=== PATIENT | female | born 1950 | race Caucasian/White ===

== ENCOUNTER 2018-08-07 05:17 | Inpatient (IN) | payer OTHER ==
[2018-07-31 11:07] LABS: URINE BILIRUBIN NEGATIVE (Negative); URINE BLOOD NEGATIVE (Negative); URINE CLARITY SL CLOUDY; URINE COLOR YELLOW; URINE GLUCOSE-RANDOM* NEGATIVE (Negative); URINE KETONES NEGATIVE (Negative); URINE LEUKOCYTES-REFLEX NEGATIVE (Negative); URINE NITRITE-REFLEX NEGATIVE (Negative); URINE PROTEIN (DIPSTICK) NEGATIVE (Negative); URINE SPECIFIC GRAVITY <= 1.005 (1.005-1.035); URINE UROBILINOGEN 0.2 E.U./dl (0.2-1.0)
[2018-07-31 11:09] LABS: CALCIUM 10.1 mg/dL (8.5-10.1); CREATININE 1.5 mg/dL (0.6-1.0); POTASSIUM 4.1 mmol/L (3.5-5.1)
[2018-07-31 11:11] LABS: PROTIME 9.8 Seconds (9.3-11.4)
[2018-07-31 11:49] LABS: HEMATOCRIT 39.7 % (37.0-47.0); HEMOGLOBIN 13.5 gm/dL (12.0-15.0); MCH 29.1 pg (26.0-34.0); MCHC 33.9 g/dL (28.0-37.0); MCV 85.7 fL (80.0-100.0); RBC 4.63 mil/uL (4.20-5.00); RDW 13.3 % (10.5-14.5); WBC 8.8 thou/uL (4.0-11.0)
[2018-08-01 04:08] LABS: GLYCOHEMOGLOBIN (HGB A1C) 5.4 % (4.8-5.6)
[~2018-08-07] VITALS: Ht 165.1 cm; Wt 98.0 kg
[2018-08-07] VITALS (7 sets, daily range): BP systolic 98–135; BP diastolic 45–72
--- NOTE | ~2018-08-07 | EKG ---
[address] [address] ELECTROCARDIOGRAM REPORT Name: RIVERA RIVER Room #: PRE [facility]#: [id number] Admission: Attend Phys: Quentin Fernando MD Discharge: Date of : 50 Report #: [id number] THIS REPORT FOR: //name// [facility] Test Date: 2018-07-31 Test Time: 10:36:52 Pat Name: RIVERA RIVER Department: Room: Gender: F Posting Specialist: Dilip PEREYRA : 1950 Requested By: Quentin Fernando Order Number: [id number] MD: Gus Simmons Measurements Intervals [place] Rate: 52 P: 31 [place]: 137 QRS: -1 QRSD: 105 T: 44 QT: 435 QTc: 405 Interpretive Statements Sinus rhythm No previous ECG available for comparison Electronically Signed On 08-04-2018 14:36:56 CDT by Gus Simmons [email or web address] <ELECTRONICALLY SIGNED> By: Gus Simmons MD 08/04/18 1436 1036 1036 Gus Simmons MD /SARAH
--- NOTE | ~2018-08-07 | O ---
[facility] [place] [address] OPERATIVE REPORT Name: RIVERA RIVER Room #: 454-P [facility] M.R.#: [id number] Admission: 08/07/18 Attend Phys: Quentin Fernando MD Discharge: Date of : 50 Report #: [id number] THIS REPORT FOR: //name// CC: BIBIANA DAHL Physician staff Quentin Fernando DATE OF SERVICE: 08/07/2018 PREOPERATIVE DIAGNOSIS: Left knee medial compartment osteoarthritis. POSTOPERATIVE DIAGNOSIS: Left knee medial compartment osteoarthritis. PROCEDURE: Left medial compartment knee arthroplasty with Navio assist. SURGEON: Quentin Fernando MD. BEEF GRINDER: Alicia Swan PA-C. INDICATIONS FOR BEEF GRINDER: Throughout the case, extensive retraction and manipulation of the knee was required. This was afforded to me by my funeral assistant. ANESTHESIA: LMA with an adductor canal block. IMPLANTS: [employer] size 5 Stride femoral medial knee component, a size 5 tibia and a size 9 polyethylene. TOURNIQUET TIME: 72 minutes. ESTIMATED BLOOD LOSS: 25 mL. COMPLICATIONS: None. SPECIMENS: None. CONDITION UPON LEAVING THE OPERATING ROOM: Stable. INDICATION FOR PROCEDURE: The patient is a 67-year-old female with severe left knee medial compartment osteoarthritis. She had failed conservative measures for this and after discussion with her, she elected for left medial compartment knee arthroplasty. DESCRIPTION OF PROCEDURE: Risks, benefits, alternatives, complications were discussed in detail with the patient including but not limited to risk of anesthesia, risk of damage to nerves, arteries, blood vessels, risk for infection, bleeding, risk for continued knee pain, need for reoperation. [facility] [address] [place] [address] OPERATIVE REPORT Name: RIVERA RIVER Enrique Room #: 454-P [facility] ..#: [id number] Admission: 08/07/18 Attend Phys: Quentin Fernando MD Discharge: Date of : 50 Report #: [id number] Informed consent was obtained from the patient. Left knee was appropriately marked in the preoperative holding area. IV vancomycin was given for preoperative antibiotics. Adductor canal block was placed by anesthesia. She was brought to the operating room and placed in the supine position on the operating room table. LMA anesthesia was induced without complication. Tourniquet was placed on the left thigh. Left lower extremity was prepped and draped in normal sterile fashion. Timeout was performed properly identifying the patient and procedure as well as the instrumentation and implants. All in the operating room were in agreement. Left lower extremity was exsanguinated, tourniquet was inflated. Tourniquet time was 72 minutes. Standard approach to the medial compartment was made with 10 blade through the skin. Dissection was taken down sharply to the fascia and deep flaps were developed medially and laterally. Fresh 10 blade was used to make a medial parapatellar arthrotomy and the knee was inspected. There was severe medial compartment osteoarthritis. Lateral compartment was well maintained. 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 It was decided to proceed with medial compartment arthroplasty. Reference pins were then placed in the femur and the tibia and the knee was then digitally mapped by Navio surgical navigation funeral assistant. Intraoperative plan was then made and there was a size 5 femur and a size 5 tibia. After acceptance of the plan, the femoral and tibial resections were made with the Navio bur. Trial components were then placed and a size 9 polyethylene spacer was placed. Knee was taken through range of motion, found to be stable, found to have 1-mm laxity immediately through range of motion with the intraoperative plan. Trial components were removed. Bony ends were thoroughly irrigated with normal saline. A final size 5 tibia, size 5 Stride femur and a size 9 polyethylene were placed. While the cement cured, a periarticular injection consisting of morphine, ropivacaine, epinephrine and Toradol was placed around the knee joint. After the cement cured, a final size 9 polyethylene was placed. The fascia was closed with 0 Vicryl. Tourniquet was deflated. Hemostasis was obtained with Bovie cautery. A gram of vancomycin was placed deep in the joint prior to closure. Skin was closed with 2-0 Vicryl, 3-0 Monocryl. Dermabond and a ARMOND dressing was applied. The patient tolerated this procedure well and went to recovery room under care of anesthesia postoperatively. <ELECTRONICALLY SIGNED> By: Quentin Fernando MD 08/08/18 0748 1519 1622 Quentin Fernando MD /nt
[~2018-08-07 05:17] MED LIST: ASPIR 8181 MG PO; CENTRUM SILVER1 EAC4 PO; FLONASE 0.05%50 MCG NASAL; LIPITOR10 MG PO; NORVASC10 MG PO; PRILOSEC 20 MG20 MG PO; TRIAMTERENE-HC1 EAC3 PO
[2018-08-08 05:39] LABS: HEMATOCRIT 32.1 % (37.0-47.0); HEMOGLOBIN 10.7 gm/dL (12.0-15.0); MCHC 33.4 g/dL (28.0-37.0); MCV 86.8 fL (80.0-100.0); RBC 3.7 mil/uL (4.20-5.00); RDW 13.2 % (10.5-14.5); WBC 12.6 thou/uL (4.0-11.0)
[2018-08-08 08:00] VITALS: BP 117/61
[2018-08-08] MEDS ORDERED: REGLAN 5 MG TAB5 MG PO (09:36)
[2018-08-08] MEDS ORDERED: NEURONTIN 300300 M1 PO (09:36)
[2018-08-08] MEDS ORDERED: TRI-BUFFERED A325 M1 PO (09:36)
[2018-08-08 10:38] VITALS: BP 117/61
== END 2018-08-08 13:27 | disposition home or self-care (01) | DRG 470 ==
LOC: 4W 05:17 → TBA 05:17 → PRE 06:21 → 4W 15:59 → PRE 16:20 → ENTRNSPT 08-08 13:18 → EDTRNSPTSTS 08-08 13:23 → 4W 08-08 13:27
PROVIDERS: Orthopaedic Surgery
PROC: 0SRD0L9 Replacement of Left Knee Joint with Medial Unicondylar Synthetic Substitute, Cemented, Open Approach (ICD-10-PCS; principal; 2018-08-07)
DX: M17.12 Unilateral primary osteoarthritis, left knee (principal); I10 Essential (primary) hypertension; E78.00 Pure hypercholesterolemia, unspecified; H40.9 Unspecified glaucoma; Z79.899 Other long term (current) drug therapy; Z88.6 Allergy status to analgesic agent; Z88.2 Allergy status to sulfonamides; Z88.8 Allergy status to other drugs, medicaments and biological substances; Z87.891 Personal history of nicotine dependence
CPT/HCPCS: 10047; 50010; 50101; 50415; 50954; 51130; 51225; 51771; 53078; 53370; 54118; 56527; 56528; 57095; 57103; 57109; 57110; 57112; 57113; 57180; 62110; 62900; 64043; 65060; 70005